=== PATIENT | female | born 1965 | race American Indian/Alaskan Native ===

== ENCOUNTER 2016-08-23 15:57 | Emergency (ER) | payer OTHER, SELFPAY ==
[2016-08-23 15:58] VITALS: BMI 24.3
[2016-08-23 16:33] VITALS: PULSE 72; RESP 16; TEMP 97.6
--- NOTE | 2016-08-23 16:41 | ED PDOC ---
Arrival/HPI - General Chief Complaint: Dizziness/Lightheaded Time Seen by Provider: 08/23/16 16:25 Historian: Patient - History of Present Illness Narrative History of Present Illness (Text): 08/23/16 16:43 A 51 year old female, no prior history, presents to the emergency department complaining of dizziness, weakness and intermittent bilateral neck and shoulder pain for the past 3 weeks. Patient reports some nausea, but denies vomiting, hematochezia or any other complaints at this time. Time/Duration: < month Symptom Onset: Sudden Symptom Course: Unchanged Activities at Onset: Rest Context: Home Associated Symptoms (Text): nausea Past Medical History - Provider Review Nursing Documentation Reviewed: Yes - Past History Past History: No Previous - Infectious Disease Hx of Infectious Diseases: None - Pulmonary Hx Pneumonia: Yes - Musculoskeletal/Rheumatological Hx Falls: No - Psychiatric Hx Depression: No Hx Emotional Abuse: No Hx Physical Abuse: No Hx Substance Use: No - Past Surgical History Past Surgical History: No Previous - Suicidal Assessment Feels Threatened In Home Enviroment: No Family/Social History - Physician Review Nursing Documentation Reviewed: Yes Family/Social History: No Known Family HX Smoking Status: Never Smoked Hx Alcohol Use: No Hx Substance Use: No Hx Substance Use Treatment: No Allergies/Home Meds Allergies/Adverse Reactions: Allergies No Known Allergies Allergy (Verified 08/23/16 16:33) Home Medications: Home Meds Medication Instructions Recorded Confirmed No Known Home Med 02/26/12 08/23/16 Review of Systems - Review of Systems Constitutional: Fatigue Eyes: Normal ENT: Normal Respiratory: Normal Cardiovascular: Normal Gastrointestinal: Nausea. absent: Vomiting, Hematochezia Genitourinary Female: Normal Musculoskeletal: Neck Pain, Other (bilateral shoulder pain) Skin: Normal Neurological: Dizziness. absent: Headache Endocrine: Normal Hemo/Lymphatic: Normal Psychiatric: Normal Physical Exam Vital Signs Reviewed: Yes Vital Signs Temp Pulse Resp BP Pulse Ox 08/23/16 18:04 72 16 132/87 98 08/23/16 16:24 97.6 F 72 16 140/72 100 08/23/16 15:58 97.6 F 72 16 140/72 100 Temperature: Afebrile Blood Pressure: Normal Pulse: Regular Respiratory Rate: Normal Appearance: Positive for: Well-Appearing, Non-Toxic, Comfortable Pain Distress: None Mental Status: Positive for: Alert and Oriented X 3 - Systems Exam Head: Present: Atraumatic, Normocephalic Pupils: Present: PERRL Extroacular Muscles: Present: EOMI Conjunctiva: Present: Normal Mouth: Present: Moist Mucous Membranes Neck: Present: Normal Range of Motion Respiratory/Chest: Present: Clear to Auscultation, Good Air Exchange. No: Respiratory Distress, Accessory Muscle Use Cardiovascular: Present: Regular Rate and Rhythm, Normal S1, S2. No: Murmurs Abdomen: Present: Normal Bowel Sounds. No: Tenderness, Distention, Peritoneal Signs Back: Present: Normal Inspection Upper Extremity: Present: Normal Inspection. No: Cyanosis, Edema Lower Extremity: Present: Normal Inspection. No: Edema Neurological: Present: GCS=15, CN II-XII Intact, Speech Normal Skin: Present: Warm, Dry, Normal Color. No: Rashes Psychiatric: Present: Alert, Oriented x 3, Normal Insight, Normal Concentration Medical Decision Making ED Course and Treatment: 08/23/16 16:37 Impression: A 51 year old female with dizziness, weakness, neck and shoulder pain. Differential Diagnosis included but are not limited to: Plan: -- EKG -- chest xray -- labs -- Urinalysis -- Reassess and disposition Prior Visits: Notes and results from previous visits were reviewed. Patient last reported to the emergency department on 02/26/12 for evaluation of left sided chest pain radiating to left arm. Progress Notes: EKG: Ordered, reviewed, and independently interpreted the EKG. Rate : 68 BPM Rhythm : NSR Interpretation : No ST/T wave changes 08/23/16 17:51 pt watching tv in nad. refuses cxr. requesting to be d/c. states she feels well to [facility]. advise outpt follow up and return precautions. - Lab Interpretations Lab Results: 08/23/16 16:40 08/23/16 16:40 Lab Results 08/23/16 16:55: Urine Color Straw, Urine Appearance Clear, Urine pH 7.5, Ur Specific [place] 1.010, Urine Protein Negative, Urine Glucose (UA) Negative, Urine Ketones Negative, Urine Blood Moderate H, Urine Nitrate Negative, Urine Bilirubin Negative, Urine Urobilinogen 0.2, Ur Leukocyte Esterase Negative, Urine RBC 2 - 5, Urine WBC Negative, Ur Epithelial Cells 0 - 2, Urine Bacteria Trace, Urine HCG, Qual Negative 08/23/16 16:40: Sodium 137, Potassium 4.0, Chloride 101, Carbon Dioxide 29, Anion Gap 11, BUN 11, Creatinine 0.7, Est GFR ( Amer) > 60, Est GFR (Non- Af Amer) > 60, Random Glucose 93, Calcium 9.0, Magnesium 1.7, Total Bilirubin 0.4, AST 18, ALT 27, Alkaline Phosphatase 46, Lactate Dehydrogenase 390, Total Creatine Kinase 57, Troponin I < 0.01, Total Protein 6.9, Albumin 3.9, Globulin 3.0, Albumin/Globulin Ratio 1.3 08/23/16 16:40: PT 11.2, INR 1.04, APTT 27.8 08/23/16 16:40: WBC 5.7, RBC 3.70, Hgb 11.5 L, Hct 33.2 L, MCV 89.7, MCH 31.1, MCHC 34.6, RDW 12.0, Plt Count 228, MPV 10.4, Gran % 65.3, Lymph % (Auto) 26.2, Winn % (Auto) 4.8, Eos % (Auto) 3.2, Baso % (Auto) 0.5, Gran # 3.71, Lymph # 1.5 , Winn # 0.3, Eos # 0.2, Baso # 0.03 I have reviewed the lab results: Yes - RAD Interpretation Radiology Orders: 08/23/16 16:35 CHEST PORTABLE [RAD] Stat - EKG Interpretation Interpreted by ED Physician: Yes Type: 12 lead EKG - Medication Orders Current Medication Orders: Discontinued Medications Ondansetron HCl (Zofran Inj) 4 mg IVP STAT STA Stop: 08/23/16 17:11 Last Admin: 08/23/16 17:20 Dose: 4 mg - Scribe Statement The provider has reviewed the documentation as recorded by the Sharon De Leon Provider Scribe Attestation: All medical record entries made by the Sharon were at my direction and personally dictated by me. I have reviewed the chart and agree that the record accurately reflects my personal performance of the history, physical exam, medical decision making, and the department course for this patient. I have also personally directed, reviewed, and agree with the discharge instructions and disposition. Disposition/Present on Arrival - Present on Arrival Any Indicators Present on Arrival: No History of DVT/PE: No History of Uncontrolled Diabetes: No Urinary Catheter: No History of Decub. Ulcer: No History Surgical Site Infection Following: None - Disposition Have Diagnosis and Disposition been Completed?: Yes Diagnosis: Dizziness Disposition: HOME/ ROUTINE Disposition Time: 17:51 Condition: STABLE Discharge Instructions (ExitCare): Dizziness (ED) Additional Instructions: please follow up with your doctor. return to emergency room with worsening symtposm or concerns. Referrals: PCP,NO [Primary Care Provider] - Follow up with primary [facility] [place]] - Follow up with primary [facility] [Outside] - Follow up with primary Kian Choi MD [Staff Provider] - Follow up with primary Vikram Davis MD [Staff Provider] - Follow up with primary
[2016-08-23 16:52] LABS: ADD MANUAL DIFF? NO
[2016-08-23 17:00] LABS: BASO # 0.03 K/mm3 (0.0-2.0); BASO % 0.5 % (0.0-3.0); EOS # 0.2 (0.0-0.7); EOS % 3.2 % (1.5-5.0); GRAN # 3.71 (1.4-6.5); GRAN % 65.3 % (50.0-68.0); HEMATOCRIT 33.2 % (36.0-48.0); LYMPH # 1.5 (1.2-3.4); LYMPH % 26.2 % (22.0-35.0); MEAN CELL VOLUME 89.7 fL (80.0-105.0); MEAN CORPUSCULAR HEMOGLOBIN 31.1 pg (25.0-35.0); MEAN CORPUSCULAR HGB CONC 34.6 g/dl (31.0-37.0); MEAN PLATELET VOLUME 10.4 fl (7.0-11.0); MONO # 0.3 (0.1-0.6); MONO % 4.8 % (1.0-6.0); PLATELET COUNT 228 10^3/uL (120.0-450.0); WHITE BLOOD COUNT 5.7 10^3/ul (4.5-11.0)
[2016-08-23 17:05] LABS: ALB/GLOB RATIO 1.3 (1.1-1.8); ALKALINE PHOSPHATASE 46 U/L (38-133); ALT/SGPT 27 U/L (7-56); AST/SGOT 18 U/L (15-39); BILIRUBIN,TOTAL 0.4 mg/dL (0.2-1.3); BLOOD UREA NITROGEN 11 mg/dL (7-21); CARBON DIOXIDE 29 mmol/L (21-33); CHLORIDE 101 mmol/L (98-107); GFR AFRICAN-AMERICAN > 60; GLUCOSE,RANDOM 93 mg/dL (70-110); MAGNESIUM 1.7 mg/dL (1.7-2.2); SODIUM 137 mmol/L (132-148); TOTAL PROTEIN 6.9 g/dL (5.8-8.3)
[2016-08-23 17:07] LABS: INR 1.04 (0.93-1.08); PARTIAL THROMBOPLASTIN TIME 27.8 Seconds (23.7-30.8)
[2016-08-23 17:14] LABS: PH,URINE 7.5 (4.7-8.0); URINE BILIRUBIN NEGATIVE (NEGATIVE); URINE BLOOD MODERATE (NEGATIVE); URINE GLUCOSE (UA) NEGATIVE (NEGATIVE); URINE KETONE NEGATIVE (NEGATIVE); URINE LEUKOCYTE ESTERASE NEGATIVE Leu/uL (NEGATIVE); URINE PROTEIN NEGATIVE mg/dL (<30 mg/dL); URINE UROBILINOGEN 0.2 E.U./dL (<1 E.U./dL)
[2016-08-23 17:19] LABS: URINE APPEARANCE CLEAR (CLEAR); URINE COLOR STRAW (YELLOW)
[2016-08-23 17:21] LABS: TROPONIN I < 0.01 ng/mL
[2016-08-23 17:21] LABS: URINE BACTERIA TRACE (NEG); URINE EPITHELIAL CELLS 0 - 2 /hpf (0-5); URINE WBC NEGATIVE /hpf (0-6)
[2016-08-23 18:05] VITALS: BP 132/87; O2SAT 98
--- NOTE | 2016-08-24 10:22 | CARD ---
APPROVED REPORT EKG Measurement Heart [id number] <Conclusion> Normal sinus rhythm RVCD Normal ECG Improved repolarization c/w ECG 02/27/12
== END 2016-08-23 18:06 | disposition home or self-care (01) ==
LOC: ED 15:57
DX: R42 Dizziness and giddiness (principal)
CPT/HCPCS: 80053; 81001; 82550; 83615; 83735; 84484; 84703; 85025; 85610; 85730; 93005; 96374; 99285; J2405

== ENCOUNTER 2017-05-14 19:32 | Emergency (ER) | payer OTHER ==
[2017-05-14 19:33] VITALS: BMI 24.3
[2017-05-14 19:49] VITALS: TEMP 97.8; O2SAT 100
--- NOTE | 2017-05-14 20:53 | ED PDOC ---
Arrival/HPI - General Chief Complaint: High Blood Pressure Time Seen by Provider: 05/14/17 19:45 Historian: Patient - History of Present Illness Narrative History of Present Illness (Text): you were treated in the ED today for hx of hypertension, having gradual onset, progressive headache, 9/10, and dizziness/lightheadedness, with secondarily sinus/chest congestion but otherwise without any nausea/vomiting/difficulty breathing/chest pain/abdomen pain/numbness/tingling/pain with urination. 05/14/17 20:50 Time/Duration: Other (12 hours) Symptom Course: Intermittent Quality: Tightness Severity Level: 9 Activities at Onset: Rest Context: Sitting Past Medical History - Provider Review Nursing Documentation Reviewed: Yes - Travel History Have you recently traveled outside [place] w/in the past 3 mons?: No - Past History Past History: No Previous - Infectious Disease Hx of Infectious Diseases: None - Pulmonary Hx Pneumonia: Yes - Musculoskeletal/Rheumatological Hx Falls: No - Psychiatric Hx Depression: No Hx Emotional Abuse: No Hx Physical Abuse: No Hx Substance Use: No - Past Surgical History Past Surgical History: No Previous - Suicidal Assessment Feels Threatened In Home Enviroment: No Family/Social History - Physician Review Nursing Documentation Reviewed: Yes Family/Social History: No Known Family HX Smoking Status: Never Smoked Hx Alcohol Use: No Hx Substance Use: No Hx Substance Use Treatment: No Allergies/Home Meds Allergies/Adverse Reactions: Allergies No Known Allergies Allergy (Verified 05/14/17 19:45) Home Medications: Home Meds Medication Instructions Recorded Confirmed No Known Home Med 02/26/12 05/14/17 Review of Systems - Review of Systems Constitutional: Normal Eyes: Normal ENT: Normal Respiratory: Normal Cardiovascular: Normal Gastrointestinal: Normal Genitourinary Female: Normal Musculoskeletal: Normal Skin: Normal Neurological: Headache, Dizziness Endocrine: Normal Hemo/Lymphatic: Normal Psychiatric: Normal Physical Exam Vital Signs Reviewed: Yes Vital Signs Temp Pulse Resp BP Pulse Ox 05/14/17 19:45 97.8 F 79 17 164/99 H 100 Temperature: Afebrile Blood Pressure: Hypertensive Pulse: Regular Respiratory Rate: Normal Appearance: Positive for: Well-Appearing, Non-Toxic, Comfortable Pain Distress: None Mental Status: Positive for: Alert and Oriented X 3 - Systems Exam Head: Present: Atraumatic, Normocephalic Pupils: Present: PERRL Extroacular Muscles: Present: EOMI Conjunctiva: Present: Normal Ears: Present: Normal Mouth: Present: Moist Mucous Membranes Pharnyx: Present: Normal Nose (External): Present: Atraumatic Nose (Internal): Present: Normal Inspection Neck: Present: Normal Range of Motion Respiratory/Chest: Present: Clear to Auscultation, Good Air Exchange Cardiovascular: Present: Regular Rate and Rhythm Abdomen: No: Tenderness, Distention, Normal Bowel Sounds, Peritoneal Signs, Rebound, Guarding, McBurney's Point Tender, Rovsing's Sign Present, Hernias, Feeding Tubes, Ostomy Tubes, Mass/Organomegaly, Scars, Other Back: Present: Normal Inspection Upper Extremity: Present: Normal Inspection Lower Extremity: Present: Normal Inspection Neurological: Present: GCS=15, CN II-XII Intact, Speech Normal, Motor Func Grossly Intact Skin: Present: Warm, Normal Color Psychiatric: Present: Alert, Oriented x 3, Normal Insight, Normal Concentration Medical Decision Making ED Course and Treatment: you were treated in the ED today for hx of hypertension, having gradual onset, progressive headache, 9/10, and dizziness/lightheadedness, with secondarily sinus/chest congestion but otherwise without any nausea/vomiting/difficulty breathing/chest pain/abdomen pain/numbness/tingling/pain with urination. You were otherwise breathing easily, pink moist lips, smiling and talking easily, good strength/sensation, alert/oriented, walking easily, clear lungs, no abdomen tenderness, no fever temp 97.8, stable heart rate 79, stable breathing rate 17, excellent oxygen level 100% room air, elevated blood pressure 164/99 and repeat 134/74 which we recommend repeat in 2-3 days primary care office to determine further treatment, you have blood tests no infection count 7.2, stable blood level hemoglobin 11/platelets 269, stable chemistry, heart blood test negative less than 0.01, urine test negative for infection, urine test negative, radiology ct head no acute and chest xray no acute, ECG normal sinus rhythm, observation with improvement done in the ED with improvement, counselled to monitor symptoms, you wanted to go home and thus discharged home with . 1. Recommend follow-up primary care 1-2 days to review symptoms, referral to neurology clinic/neurosurgery clinic to review your symptoms and for ct findings of a few dural calcifications to ensure no complications/cancer development. 2. If any worsening pain, fever, chills, nausea, vomiting, difficulty breathing, numbness, loss of limb function, pain with urination or any medical condition then return to the ED. 05/14/17 22:51 05/14/17 22:52 - Lab Interpretations Lab Results: 05/14/17 21:30 05/14/17 21:30 Lab Results 05/14/17 21:30: Sodium 143, Potassium 4.2, Chloride 105, Carbon Dioxide 28, Anion Gap 14, BUN 17, Creatinine 0.7, Est GFR ( Amer) > 60, Est GFR (Non- Af Amer) > 60, Random Glucose 101, Calcium 9.4, Magnesium 1.9, Total Bilirubin 0.3, AST 19, ALT 21, Alkaline Phosphatase 51, Lactate Dehydrogenase 481, Total Creatine Kinase 55, Troponin I < 0.01, Total Protein 7.0, Albumin 3.8, Globulin 3.2, Albumin/Globulin Ratio 1.2 05/14/17 21:30: PT 11.8, INR 1.03, APTT 35.9 05/14/17 21:30: WBC 7.2 D, RBC 3.77, Hgb 11.2 L, Hct 33.6 L, MCV 89.1, MCH 29.7 , MCHC 33.3, RDW 11.9, Plt Count 269, MPV 10.7, Gran % 65.7, Lymph % (Auto) 25.9 , Wilson % (Auto) 4.9, Eos % (Auto) 3.1, Baso % (Auto) 0.4, Gran # 4.70, Lymph # ( Auto) 1.9, Wilson # (Auto) 0.4, Eos # (Auto) 0.2, Baso # (Auto) 0.03 05/14/17 20:30: Urine Color Straw, Urine Appearance Clear, Urine pH 7.0, Ur Specific [place] 1.010, Urine Protein Negative, Urine Glucose (UA) Negative, Urine Ketones Negative, Urine Blood Trace-intact H, Urine Nitrate Negative, Urine Bilirubin Negative, Urine Urobilinogen 0.2, Ur Leukocyte Esterase Negative , Urine RBC 1 - 3, Urine WBC 1 - 3, Ur Epithelial Cells 1 - 3, Urine Bacteria Few I have reviewed the lab results: Yes - RAD Interpretation Radiology Orders: 05/14/17 20:13 HEAD W/O CONTRAST [CT] Stat CHEST ONE VIEW [RAD] Stat Beauty Advisor: Radiologist (ct head no acute intracranial) - EKG Interpretation Interpreted by ED Physician: Yes (NSR, flipped t waves avr, v1, iii) Type: 12 lead EKG Comparison: Similar to previous EKG (08/23/16) - Medication Orders Current Medication Orders: Discontinued Medications Acetaminophen (Tylenol 325mg Tab) 975 mg PO STAT STA Stop: 05/14/17 20:49 Ondansetron HCl (Zofran Inj) 4 mg IVP STAT STA Stop: 05/14/17 20:50 NIHSS Stroke Scale 3 - Date/Time Evaluation Performed Date Performed: 05/14/17 When Was NIHSS Performed: Baseline - How Severe is the Stroke Level of Consciousness: 0=Alert LOC to Questions: 0=Both comments correct LOC to commands: 0=Obeys both correctly Best Gaze: 0=Normal Visual: 0=No visual loss Facial: 0=Normal Motor Arm - Left: 0=No drift Motor Arm - Right: 0=No drift Motor Leg - Left: 0=No drift Motor Leg - Right: 0=No drift Limb Ataxia: 0=Absent Sensory: 0=Normal Best Language: 0=No aphasia Dysarthia: 0=Normal articulation Extinction & Inattention (Neglect): 0=Normal, no object Score: 0 Severity Of Stroke: 0 = No Stroke Disposition/Present on Arrival - Present on Arrival Any Indicators Present on Arrival: No History of DVT/PE: No History of Uncontrolled Diabetes: No Urinary Catheter: No History of Decub. Ulcer: No History Surgical Site Infection Following: None - Disposition Have Diagnosis and Disposition been Completed?: Yes Diagnosis: Headache Disposition: HOME/ ROUTINE Disposition Time: 22:53 Patient Plan: Discharge Condition: IMPROVED Discharge Instructions (ExitCare): Headache, Adult (DC) Additional Instructions: you were treated in the ED today for hx of hypertension, having gradual onset, progressive headache, 9/10, and dizziness/lightheadedness, with secondarily sinus/chest congestion but otherwise without any nausea/vomiting/difficulty breathing/chest pain/abdomen pain/numbness/tingling/pain with urination. You were otherwise breathing easily, pink moist lips, smiling and talking easily, good strength/sensation, alert/oriented, walking easily, clear lungs, no abdomen tenderness, no fever temp 97.8, stable heart rate 79, stable breathing rate 17, excellent oxygen level 100% room air, elevated blood pressure 164/99 and repeat 134/74 which we recommend repeat in 2-3 days primary care office to determine further treatment, you have blood tests no infection count 7.2, stable blood level hemoglobin 11/platelets 269, stable chemistry, heart blood test negative less than 0.01, urine test negative for infection, urine test negative, radiology ct head no acute and chest xray no acute, ECG normal sinus rhythm, observation with improvement done in the ED with improvement, counselled to monitor symptoms, you wanted to go home and thus discharged home with . 1. Recommend follow-up primary care 1-2 days to review symptoms, referral to neurology clinic/neurosurgery clinic to review your symptoms and for ct findings of a few dural calcifications to ensure no complications/cancer development. 2. If any worsening pain, fever, chills, nausea, vomiting, difficulty breathing, numbness, loss of limb function, pain with urination or any medical condition then return to the ED. Referrals: Marvin Juarez, [Primary Care Provider] - Follow up with primary Forms: [employer] ([place])
[2017-05-14 21:17] LABS: URINE BILIRUBIN NEGATIVE (NEGATIVE); URINE BLOOD TRACE-INTACT (NEGATIVE); URINE GLUCOSE (UA) NEGATIVE (NEGATIVE); URINE LEUKOCYTE ESTERASE NEGATIVE Leu/uL (NEGATIVE); URINE NITRATE NEGATIVE (NEGATIVE); URINE PROTEIN NEGATIVE mg/dL (<30 mg/dL); URINE UROBILINOGEN 0.2 E.U./dL (<1 E.U./dL)
[2017-05-14 21:18] LABS: URINE APPEARANCE CLEAR (CLEAR); URINE COLOR STRAW (YELLOW)
[2017-05-14 21:26] LABS: URINE BACTERIA FEW (NEG)
[2017-05-14 21:36] LABS: BASO # 0.03 K/mm3 (0.0-2.0); BASO % 0.4 % (0.0-3.0); EOS # 0.2 (0.0-0.7); EOS % 3.1 % (1.5-5.0); GRAN # 4.7 (1.4-6.5); GRAN % 65.7 % (50.0-68.0); HEMOGLOBIN 11.2 g/dL (12.0-16.0); LYMPH # 1.9 (1.2-3.4); LYMPH % 25.9 % (22.0-35.0); MEAN CELL VOLUME 89.1 fl (80.0-105.0); MEAN CORPUSCULAR HEMOGLOBIN 29.7 pg (25.0-35.0); MEAN CORPUSCULAR HGB CONC 33.3 g/dl (31.0-37.0); MEAN PLATELET VOLUME 10.7 fl (7.0-11.0); MONO # 0.4 (0.1-0.6); MONO % 4.9 % (1.0-6.0); RBC 3.77 10^6/uL (3.5-6.1); RED CELL DISTRIBUTION WIDTH 11.9 % (11.5-14.5); WHITE BLOOD COUNT 7.2 10^3/ul (4.5-11.0)
[2017-05-14 21:47] LABS: ALB/GLOB RATIO 1.2 (1.1-1.8); ALBUMIN 3.8 g/dL (3.0-4.8); ALT/SGPT 21 U/L (7-56); AST/SGOT 19 U/L (14-36); BLOOD UREA NITROGEN 17 mg/dL (7-21); CALCIUM 9.4 mg/dL (8.4-10.5); GFR AFRICAN-AMERICAN > 60; GFR NON-AFRICAN AMERICAN > 60; MAGNESIUM 1.9 mg/dL (1.7-2.2)
[2017-05-14 21:55] LABS: INR 1.03 (0.93-1.08); PARTIAL THROMBOPLASTIN TIME 35.9 Seconds (25.1-36.5); PROTHROMBIN TIME 11.8 SECONDS (9.4-12.5)
[2017-05-14 21:58] LABS: TROPONIN I < 0.01 ng/mL
--- NOTE | 2017-05-14 22:34 | CT ---
EXAM: CT Head Without Intravenous Contrast CLINICAL HISTORY: 51 years old, female; Pain; Headache; Headache not specified; Additional info: 51yof, with headache TECHNIQUE: Axial computed tomography images of the head/brain without intravenous contrast. All CT scans at this facility use one or more dose reduction techniques, viz.: automated exposure control; ma/kV adjustment per patient size (including targeted exams where dose is matched to indication; i.e. head); or iterative reconstruction technique. Coronal and sagittal reformatted images were created and reviewed. COMPARISON: No relevant prior studies available. FINDINGS: Brain: No intracranial hemorrhage. No mass. Few dural calcifications. No definite edema. Ventricles: No hydrocephalus. Bones/joints: No acute fracture. Soft tissues: Unremarkable. Sinuses: No acute sinusitis. Mastoid air cells: No mastoid effusion. Orbits: Unremarkable as visualized. IMPRESSION: 1. No definite acute intracranial abnormality. 2. Incidental/non-acute findings are described above.
[2017-05-14 22:49] VITALS: BP 134/74; PULSE 64; RESP 18
--- NOTE | 2017-05-15 09:35 | RAD ---
PROCEDURE: CHEST RADIOGRAPH, 1 VIEW HISTORY: 51yoF, congestion COMPARISON: 02/26/2012. FINDINGS: LUNGS: The lungs are well inflated and clear. PLEURA: No pneumothorax or pleural fluid seen. CARDIOVASCULAR: Normal. OSSEOUS STRUCTURES: No significant abnormalities. VISUALIZED UPPER ABDOMEN: Normal. OTHER FINDINGS: None. IMPRESSION: No active pulmonary disease.
--- NOTE | 2017-05-15 10:44 | CARD ---
APPROVED REPORT EKG Measurement Heart [id number] ID [id number] <Conclusion> Normal sinus rhythm Poor R Progression of R V1-V3.
== END 2017-05-14 23:19 | disposition home or self-care (01) ==
LOC: ED 19:32
DX: R51 Headache (principal)

== ENCOUNTER 2017-06-23 16:14 | Emergency (ER) | payer OTHER ==
[2017-06-23 16:15] VITALS: BMI 24.3
[2017-06-23 16:42] VITALS: RESP 18; TEMP 98.8; O2SAT 99
[2017-06-23] MEDS ORDERED: Sodium Chloride 0.9% 1,000 ML IV STA (16:44)
[2017-06-23 17:17] LABS: BASO # 0.02 K/mm3 (0.0-2.0); BASO % 0.3 % (0.0-3.0); EOS # 0.1 (0.0-0.7); EOS % 1.6 % (1.5-5.0); GRAN # 4.64 (1.4-6.5); GRAN % 69.4 % (50.0-68.0); HEMOGLOBIN 12.6 g/dL (12.0-16.0); LYMPH # 1.6 (1.2-3.4); LYMPH % 24.2 % (22.0-35.0); MEAN CELL VOLUME 87.7 fl (80.0-105.0); MEAN CORPUSCULAR HEMOGLOBIN 30.4 pg (25.0-35.0); MEAN CORPUSCULAR HGB CONC 34.6 g/dl (31.0-37.0); MEAN PLATELET VOLUME 11.1 fl (7.0-11.0); MONO # 0.3 (0.1-0.6); MONO % 4.5 % (1.0-6.0); RBC 4.15 10^6/uL (3.5-6.1); RED CELL DISTRIBUTION WIDTH 12.6 % (11.5-14.5); WHITE BLOOD COUNT 6.7 10^3/ul (4.5-11.0)
[2017-06-23 17:24] LABS: INR 1.07 (0.93-1.08); PARTIAL THROMBOPLASTIN TIME 33.6 Seconds (25.1-36.5); PROTHROMBIN TIME 12.2 SECONDS (9.4-12.5)
[2017-06-23 17:31] LABS: ALB/GLOB RATIO 1.2 (1.1-1.8); ALBUMIN 4.1 g/dL (3.0-4.8); ALT/SGPT 23 U/L (7-56); AST/SGOT 16 U/L (14-36); BLOOD UREA NITROGEN 11 mg/dL (7-21); CALCIUM 9.8 mg/dL (8.4-10.5); GFR AFRICAN-AMERICAN > 60; GFR NON-AFRICAN AMERICAN > 60; LIPASE 94 U/L (23-300)
--- NOTE | 2017-06-23 17:45 | CT ---
PROCEDURE: CT Abdomen and Pelvis without intravenous contrast HISTORY: abdominal pain COMPARISON: 07/30/2011 CT abdomen and pelvis TECHNIQUE: Unenhanced study. Neither oral nor intravenous contrast administered. Sensitivity and specificity for acute inflammatory processes limited by the absence of oral and intravenous contrast. Radiation dose: Total exam DLP = 610.57 mGy-cm. This CT exam was performed using one or more of the following dose reduction techniques: Automated exposure control, adjustment of the mA and/or kV according to patient size, and/or use of iterative reconstruction technique. FINDINGS: LOWER THORAX: Unremarkable. LIVER: Unremarkable. No gross lesion or ductal dilatation. GALLBLADDER AND BILE DUCTS: Unremarkable. PANCREAS: Poorly visualized pancreatic head and body in the absence of intravenous or oral contrast and paucity of abdominal/ retroperitoneal fat. SPLEEN: Unremarkable. ADRENALS: Unremarkable. No mass. KIDNEYS AND URETERS: Unremarkable. No hydronephrosis. No solid mass. VASCULATURE: Unremarkable. No aortic aneurysm. BOWEL: Unremarkable. No obstruction. No gross mural thickening. APPENDIX: No abnormalities to suggest acute appendicitis. No right lower quadrant inflammatory processes identified. PERITONEUM: Unremarkable. No free fluid. No free air. LYMPH NODES: Unremarkable. No enlarged lymph nodes. BLADDER: Unremarkable. REPRODUCTIVE: Markedly enlarged uterus, similar findings identified on the prior CT scan. Cystic masses in the pelvis, right lower quadrant adjacent to the uterus perhaps adnexal in origin measuring 1.9 cm and 2.3 cm in diameter. BONES: No acute fracture. OTHER FINDINGS: None. IMPRESSION: No acute findings related to/accounting for the clinical presentation. Additional benign and/or incidental findings described above. Limitations of the current examination: Absence of oral and intravenous contrast in this clinical setting and with findings described above.
--- NOTE | 2017-06-23 17:53 | ED PDOC ---
Arrival/HPI - General Chief Complaint: Female Genitourinary Time Seen by Provider: 06/23/17 16:22 Historian: Patient - History of Present Illness Narrative History of Present Illness (Text): 06/23/17 17:50 51yo female with PMhx of fibroid who present with complaint of abdominal pain x 3weeks. She notes that pain started on her pelvic area with her menstrual period 3weeks ago and then it became more generalized pain. States pain radiates to her back. Denies fever, chills, nausea, vomiting, diarrhea, melena, hematemesis, chest pain, any other pain. She is eating and drinking well. Past Medical History - Provider Review Nursing Documentation Reviewed: Yes - Past History Past History: No Previous - Infectious Disease Hx of Infectious Diseases: None - Pulmonary Hx Pneumonia: Yes - Musculoskeletal/Rheumatological Hx Falls: No - Psychiatric Hx Depression: No Hx Emotional Abuse: No Hx Physical Abuse: No Hx Substance Use: No - Past Surgical History Past Surgical History: No Previous - Suicidal Assessment Feels Threatened In Home Enviroment: No Family/Social History - Physician Review Nursing Documentation Reviewed: Yes Family/Social History: Unknown Family HX Smoking Status: Never Smoked Hx Alcohol Use: No Hx Substance Use: No Hx Substance Use Treatment: No Allergies/Home Meds Allergies/Adverse Reactions: Allergies No Known Allergies Allergy (Verified 06/23/17 16:24) Review of Systems - Physician Review All systems were reviewed & negative as marked: Yes - Review of Systems Constitutional: Normal Eyes: Normal ENT: Normal Respiratory: Normal Cardiovascular: Normal Gastrointestinal: Abdominal Pain. absent: Constipation, Diarrhea, Nausea, Vomiting, Hematochezia, Hematemesis Genitourinary Female: Normal Musculoskeletal: Normal Skin: Normal Neurological: Normal Endocrine: Normal Hemo/Lymphatic: Normal Psychiatric: Normal Physical Exam Vital Signs Reviewed: Yes Vital Signs Temp Pulse Resp BP Pulse Ox 06/23/17 18:04 75 18 148/79 99 06/23/17 16:31 98.8 F 80 18 153/87 H 99 06/23/17 16:25 98.8 F 80 17 153/87 H 99 Temperature: Afebrile Blood Pressure: Normal Pulse: Regular Respiratory Rate: Normal Appearance: Positive for: Well-Appearing, Non-Toxic, Comfortable Pain Distress: None Mental Status: Positive for: Alert and Oriented X 3 - Systems Exam Head: Present: Atraumatic, Normocephalic Pupils: Present: PERRL Extroacular Muscles: Present: EOMI Conjunctiva: Present: Normal Mouth: Present: Moist Mucous Membranes Neck: Present: Normal Range of Motion Respiratory/Chest: Present: Clear to Auscultation, Good Air Exchange. No: Respiratory Distress, Accessory Muscle Use Cardiovascular: Present: Regular Rate and Rhythm, Normal S1, S2. No: Murmurs Abdomen: Present: Tenderness (Diffuse), Normal Bowel Sounds (Hyperactive BS x 2 - Upper abdomen), Guarding (Voluntary), Other (soft). No: Distention, Peritoneal Signs, Rebound, McBurney's Point Tender, Rovsing's Sign Present Back: Present: Normal Inspection Upper Extremity: Present: Normal Inspection. No: Cyanosis, Edema Lower Extremity: Present: Normal Inspection. No: Edema Neurological: Present: GCS=15, CN II-XII Intact, Speech Normal Skin: Present: Warm, Dry, Normal Color. No: Rashes Psychiatric: Present: Alert, Oriented x 3, Normal Insight, Normal Concentration Medical Decision Making - Lab Interpretations Lab Results: 06/23/17 17:05 06/23/17 17:05 Lab Results 06/23/17 18:20: Urine Color Yellow, Urine Appearance Sl cloudy, Urine pH 7.0, Ur Specific [place] 1.010, Urine Protein Negative, Urine Glucose (UA) Negative, Urine Ketones Negative, Urine Blood Large H, Urine Nitrate Negative, Urine Bilirubin Negative, Urine Urobilinogen 0.2, Ur Leukocyte Esterase Negative, Urine RBC 10 - 15, Urine WBC Negative 06/23/17 17:05: Sodium 141, Potassium 4.3, Chloride 104, Carbon Dioxide 27, Anion Gap 13, BUN 11, Creatinine 0.7, Est GFR ( Amer) > 60, Est GFR (Non- Af Amer) > 60, Random Glucose 104, Calcium 9.8, Total Bilirubin 0.3, AST 16, ALT 23, Alkaline Phosphatase 45, Total Protein 7.4, Albumin 4.1, Globulin 3.3, Albumin/Globulin Ratio 1.2, Lipase 94 06/23/17 17:05: PT 12.2, INR 1.07, APTT 33.6 06/23/17 17:05: WBC 6.7, RBC 4.15, Hgb 12.6, Hct 36.4, MCV 87.7, MCH 30.4, MCHC 34.6, RDW 12.6, Plt Count 227, MPV 11.1 H, Gran % 69.4 H, Lymph % (Auto) 24.2, Bradley % (Auto) 4.5, Eos % (Auto) 1.6, Baso % (Auto) 0.3, Gran # 4.64, Lymph # ( Auto) 1.6, Bradley # (Auto) 0.3, Eos # (Auto) 0.1, Baso # (Auto) 0.02 - RAD Interpretation Radiology Orders: 06/23/17 16:47 ABD & PELVIS W/O PO OR IV CONT [CT] Stat - Medication Orders Current Medication Orders: Discontinued Medications Famotidine (Pepcid) 20 mg IVP STAT STA Stop: 06/23/17 16:45 Last Admin: 06/23/17 17:08 Dose: 20 mg IVP Administration Document 06/23/17 17:08 HI (Rec: 06/23/17 17:08 HI [id number]) Charges for Administration # of IVP Administrations 1 Sodium Chloride (Sodium Chloride 0.9%) 1,000 mls @ 1,000 mls/hr IV .Q1H STA Stop: 06/23/17 17:43 Last Admin: 06/23/17 17:07 Dose: 1,000 mls/hr eMAR Start Stop Document 06/23/17 17:07 HI (Rec: 06/23/17 17:08 HI [id number]) Intravenous Solution Start Date 06/23/17 Start Time 17:07 Disposition/Present on Arrival - Present on Arrival Any Indicators Present on Arrival: No History of DVT/PE: No History of Uncontrolled Diabetes: No Urinary Catheter: No History of Decub. Ulcer: No History Surgical Site Infection Following: None - Disposition Have Diagnosis and Disposition been Completed?: Yes Diagnosis: Abdominal pain, Fibroid Disposition: HOME/ ROUTINE Disposition Time: 19:15 Patient Plan: Discharge Patient Problems: Current Active Problems Problem Status Onset Abdominal pain Acute Fibroid Acute Condition: STABLE Discharge Instructions (ExitCare): Uterine Fibroids, Acute Abdomen (Belly Pain) Additional Instructions: Take medication as directed follow up with a [employer] Return to ED for any new or worsening symptoms Prescriptions: MedroxyPROGESTERone [Provera] 10 mg PO DAILY #6 tab Referrals: PCP,NO [Primary Care Provider] - Follow up with primary Johnna Escalona MD [Staff Provider] - Follow up with primary [facility] [Outside] - Follow up with primary Forms: [employer] (Mal[place]ian)
[2017-06-23 19:04] LABS: URINE APPEARANCE SL CLOUDY (CLEAR); URINE BILIRUBIN NEGATIVE (NEGATIVE); URINE BLOOD LARGE (NEGATIVE); URINE COLOR YELLOW (YELLOW); URINE GLUCOSE (UA) NEGATIVE (NEGATIVE); URINE LEUKOCYTE ESTERASE NEGATIVE Leu/uL (NEGATIVE); URINE PROTEIN NEGATIVE mg/dL (<30 mg/dL); URINE UROBILINOGEN 0.2 E.U./dL (<1 E.U./dL)
[2017-06-23 19:11] LABS: URINE WBC NEGATIVE /hpf (0-6)
[2017-06-23 21:07] VITALS: BP 147/82; PULSE 82
== END 2017-06-23 19:30 | disposition home or self-care (01) ==
LOC: ED 16:14
DX: N93.8 Other specified abnormal uterine and vaginal bleeding (principal); D25.9 Leiomyoma of uterus, unspecified; R10.9 Unspecified abdominal pain
CPT/HCPCS: 74176; 80053; 81001; 83690; 85025; 85610; 85730; 96374; 99284; J7040